=== PATIENT | female | born 1970 | race Caucasian/White ===

== ENCOUNTER 2024-03-01 19:28 | Emergency (ER) | payer MEDICAID, SELFPAY ==
[2024-03-01 20:26] VITALS: BP 174/105; PULSE 84; RESP 20; TEMP 36.8; O2SAT 97; BMI 50.1
--- NOTE | 2024-03-01 20:48 | EDNOTE_ITS ---
ED Eye Problem RME/HPI General Chief complaint: Eye Problems Stated complaint: FB IN RIGHT EYE Time Seen by Provider: 03/01/24 20:42 Source: patient Arrival date/time: 03/01/24 19:28 53-year-old female presents emergency department complaining of foreign body sensation to right eye after possible spider got into her eye. Patient denies any fever, chills, vision changes, headache, dizziness, or any other associated symptoms. Mode of arrival: ambulatory Limitations: no limitations Related Data Home Medications ?Medication ?Instructions ?Recorded ?Confirmed [id number] 50 50 mg PO PRN PRN Migraine Headache 01/22/18 05/31/19 mg-325 mg-40 mg capsule (Fiorinal) furosemide 40 mg tablet (Lasix) 40 mg PO BID 01/22/18 05/31/19 sertraline 50 mg tablet (Zoloft) 50 mg PO QDAY 01/22/18 05/31/19 tiotropium bromide 18 mcg capsule 18 mcg inhalation QDAY 01/22/18 05/31/19 with inhalation device (Spiriva with HandiHaler) aripiprazole 2 mg tablet (Abilify) 2 mg PO QDAY 12/30/18 05/31/19 oxycodone 10 mg tablet 10 mg PO QDAY 12/30/18 05/31/19 topiramate 50 mg tablet (Topamax) 50 mg PO BID 12/30/18 05/31/19 benazepril 5 mg tablet 5 mg PO QDAY 05/12/19 05/31/19 Previous Rx's ?Medication ?Instructions ?Recorded albuterol sulfate 2.5 mg/3 mL 2.5 mg (3 mL) inhalation Q4H PRN 05/12/19 (0.083 %) solution for nebulization shortness of breath or wheezing #75 mL albuterol sulfate 0.63 mg/3 mL 0.63 mg (3 mL) .Route .COMPLEX PRN 05/31/19 solution for nebulization shortness of breath or wheezing #75 mL benzonatate 100 mg capsule See Rx Instructions .Route 05/31/19 (Alfredito Brewer) .COMPLEX cough #30 caps prednisone 20 mg tablet See Rx Instructions .Route QAM #19 05/31/19 tabs acetaminophen 300 mg-codeine 15 mg 1 tab PO BID PRN pain #10 tabs 02/23/22 tablet cyclobenzaprine 5 mg tablet 5 mg PO Q8H PRN muscle spasm #14 03/20/23 tabs gabapentin 300 mg capsule 300 mg PO Q8H #30 caps 03/20/23 ofloxacin 0.3 % eye drops (Ocuflox) See Rx Instructions ophthalmic 03/01/24 (eye) .COMPLEX #5 mL Allergies Allergy/AdvReac Type Severity Reaction Status Date / Time carisoprodol Allergy Mild NAUSEA Verified 03/20/23 10:04 Review of Systems Review of Systems Systems Reviewed: All systems reviewed, normal except as documented Constitutional Constitutional: Reports system reviewed and no additional complaints, except as documented, Denies body ache(s), Denies chills and Denies fever(s) Eyes Eyes: Reports system reviewed and no additional complaints, except as documented, Denies change in vision, Reports irritation and Reports other (Foreign body sensation) ENT Ears, Nose, Mouth, and Throat: Reports system reviewed and no additional complaints, except as documented, Denies disequilibrium, Denies dizziness, Denies sore throat and Denies vertigo Cardiovascular Cardiovascular: Reports system reviewed and no additional complaints, except as documented, Denies chest pain and Denies dyspnea Respiratory Respiratory: Reports system reviewed and no additional complaints, except as documented, Denies chest congestion, Denies cough and Denies dyspnea Gastrointestinal Gastrointestinal: Reports system reviewed and no additional complaints, except as documented, Denies abdominal pain, Denies nausea and Denies vomiting Musculoskeletal Musculoskeletal: Reports system reviewed and no additional complaints, except as documented, Denies abnormal gait and Denies arthralgias Integumentary/Breasts Skin/Breast: Reports system reviewed and no additional complaints, except as documented, Denies erythema, Denies rash and Denies wounds Neurologic Neurologic: Reports system reviewed and no additional complaints, except as documented, Denies abnormal gait, Denies disequilibrium, Denies dizziness and Denies vertigo Past Medical History Past Medical History NEUROLOGIC: Positive Migraine CARDIAC: Positive Congestive Heart Failure and Hypertension; Negative Cardiac Disorders RESPIRATORY: Positive Chronic Obstructive Pulmonary Disease (COPD) and Asthma GENITOURINARY: Negative Renal Disease ENDOCRINE: Negative Diabetes Mellitus Type 1 or Diabetes Mellitus Type 2 HEMATOLOGIC: Negative Sickle Cell Disease Surgical History SURGICAL: Positive Hysterectomy, Tubal Ligation and Section Social History SMOKING STATUS: Current every day smoker ED Exam General Limitations: Present no limitations General appearance: Present alert and in no apparent distress Head Head exam: Present atraumatic Eye Eye exam: Present normal appearance, PERRL, EOMI, scleral icterus and conjunctival injection Expanded Eye Exam Eyelids: right: erythema Pupils: Bilateral: regular, round Sclera/Conjunctival: right: injection ENT ENT exam: Present normal exam, normal oropharynx and mucous membranes moist Neck Neck exam: Present normal inspection, full ROM and trachea midline Chest Chest inspection: Present normal inspection and symmetric chest wall rise Respiratory Respiratory exam: Present normal lung sounds bilaterally Cardiovascular Cardiovascular exam: Present regular rate, normal rhythm and normal heart sounds Abdominal Exam Abdominal exam: Present soft and normal bowel sounds Extremities Exam Extremities exam: Present normal inspection and full ROM Back Exam Back exam: Present normal inspection and full ROM Neurological Exam Neurological exam: Present alert, oriented X3 and CN II-XII intact Psychiatric Psychiatric exam: Present normal affect and normal mood Skin Skin exam: Present warm, dry, intact and normal color Course Quality Measures none Orders Category Date Time Status Visual Acuity X1 Care 03/01/24 20:48 Completed Charles Lamp to Bedside X1 Care 03/01/24 20:48 Completed Fluorescein Sodium [[id number]] Med 03/01/24 20:48 Discontinued 1 mg RIGHT EYE X1 ONE TETRACAINE Op Kavita 0.5% [Pontocaine Op Kavita 0.5%] Med 03/01/24 20:48 Discontinued 1 drop RIGHT EYE X1 ONE Vital Signs Vital signs: Vital Signs Temperature 98.3 F 03/01/24 20:26 Pulse Rate 84 03/01/24 20:26 Respiratory Rate 20 03/01/24 20:26 Blood Pressure 174/105 H 03/01/24 20:26 Pulse Oximetry (%) 97 03/01/24 20:26 Oxygen Delivery Method Room Air 03/01/24 20:26 Procedures -ED Charles Lamp Exam Right eye: Flourescein uptake:: Yes Charles Lamp Findings: Normal Eye MDM Narrative MDM Narrative:: 53-year-old female presents emergency department complaining of foreign body sensation to right eye after possible spider got into her eye. Patient denies any fever, chills, vision changes, headache, dizziness, or any other associated symptoms. On exam patient's right eye injected sclera and upper and lower eyelids erythema tous. Charles lamp examination with fluorescein negative for any foreign body, corneal abrasion, or corneal ulcers. Patient appears nontoxic and hemodynamically stable. Patient denies any vision changes but reports right eye does feel itchy and irritated. Patient discharged on ofloxacin eyedrops and instructed to have close follow-up with belt glass sander in 24 to 48 hours. Instructed to return to emergency department for any worsening symptoms or as needed. Patient data External records reviewed:: [facility] previous records Clinical information provided by:: patient Social determinants that could affect healthcare access:: none Patient has the following chronic illnesses:: See chart How is presenting disease/condition affected by chronic disease/condition?: uneffected by Evaluation data The following diagnostics were reviewed and interpreted by me:: other (specify) (N/A) Lab and/or radiology exams considered but not ordered:: N/A Interpretation Summary: N/A Medications / Prescriptions Medications or Prescriptions considered but not ordered:: Ordered Medication administrations:: Medication Administration History Discontinued Medications Fluorescein Sodium (Fluorescein Sod 1 Mg Strp) 1 mg RIGHT EYE X1 ONE Stop: 03/01/24 20:49 Last Admin: 03/01/24 21:10 Dose: 1 mg Documented By: SARITA Tetracaine HCl (Tetracaine Pf Op Kavita 0.5% 4 Ml Drpette) 1 drop RIGHT EYE X1 ONE Stop: 03/01/24 20:49 Last Admin: 03/01/24 21:09 Dose: 1 drop Documented By: SARITA Given Consultations Consultation(s) initiated? (list below): No Diagnosis Eye Problem Differential Diagnosis: corneal abrasion, conjunctivitis, acute iritis, periorbital cellulitis and corneal ulcer Most likely diagnosis given after review of the tests above:: Bacterial conjunctivitis Admission Indicated Admission indicated?: not indicated Admission Request Was there a request for admission?: No Disposition Plan Disposition Plan: Discharge Discharge Attestation Discharge Attestation: The patient and all family members were given an opportunity to ask questions and understood the discharge instructions. Discharge instructions specifically effects, indications for sooner follow up or return to the emergency department, and the expected course of current diagnosis. Patient condition: Stable Discharge Plan Plan Patient Disposition: HOME (Self Care) Disposition Comment: Stable Prescriptions/Referrals Prescriptions/Med Rec: New ofloxacin [Ocuflox] 0.3 % drops See Rx Instructions .ROUTE .COMPLEX Qty: 5 0RF Rx Instructions: put 1-2 drps into affected eye(s) every 2-4 h x 2 days, then 1-2 drps 4 times/day days 3-7 No Action benazepril 5 mg tablet 5 mg PO QDAY albuterol sulfate 2.5 mg /3 mL (0.083 %) solution for nebulization 2.5 mg INH Q4H PRN (Reason: shortness of breath or wheezing) Qty: 75 0RF albuterol sulfate 0.63 mg/3 mL solution for nebulization 0.63 mg .Route .COMPLEX PRN (Reason: shortness of breath or wheezing) Qty: 75 0RF Rx Instructions: 0.63 mg PRN; 1 vial via nebulizer Q4-6 hours as needed prednisone 20 mg tablet See Rx Instructions .Route QAM Qty: 19 0RF Rx Instructions: QAM; Take 60mg (3 tabs) PO QAM x 3 days, then 40mg (2 tabs) PO QAM x 3 days, then 20mg (1 tab) PO QAM x 4 days benzonatate [Tessalon Perles] 100 mg capsule See Rx Instructions .Route .COMPLEX Qty: 30 0RF Rx Instructions: 1-2 cap(s) PO Q8 hours prn cough furosemide [Lasix] 40 mg Tablet 40 mg PO BID [id number]-jvjigkq-whniiwvz [Fiorinal] 50-325-40 mg Capsule 50 mg PO PRN PRN (Reason: Migraine Headache) sertraline [Zoloft] 50 mg Tablet 50 mg PO QDAY Spiriva with HandiHaler 18 mcg Capsule, W/Inhalation Device 18 mcg INHALATION QDAY acetaminophen-codeine 300-15 mg tablet 1 tab PO BID PRN (Reason: pain) Qty: 10 0RF topiramate [Topamax] 50 mg Tablet 50 mg PO BID aripiprazole [Abilify] 2 mg Tablet 2 mg PO QDAY oxycodone 10 mg Tablet 10 mg PO QDAY gabapentin 300 mg capsule 300 mg PO Q8H Qty: 30 0RF cyclobenzaprine 5 mg tablet 5 mg PO Q8H PRN (Reason: muscle spasm) Qty: 14 0RF Referrals: Julieta Fonseca MD [Primary Care Provider] - In 1 week Problem List Clinical Impression: Bacterial conjunctivitis Patient/Caregiver Discharge Instructions Discharge Activity: activity as tolerated Education Materials: ED Conjunctivitis, Bacterial Additional Instructions: Apply medication as prescribed. Close follow-up with belt glass sander in 24 to 48 hours. Return to emergency department for any worsening symptoms or as needed. Print Language: Romansh Stand Alone Forms: Adela Award Info., Work/School Release, Patient Portal Info Letter PA/DIE CASTING SUPERVISOR Supervising Physician PA/DIE CASTING SUPERVISOR Supervising Physician: Dr. Salinas
[2024-03-01] MEDS: TETRACAINE PF OP SOL 0.5% 4 ML DRPETTE 1 DROP RIGHT EYE (21:09)
[2024-03-01] MEDS: FLUORESCEIN SOD 1 MG STRP RIGHT EYE (21:10)
== END 2024-03-01 23:03 | disposition home or self-care (01) ==
PROVIDERS: Emergency Provider Emergency Medicine; PCP Obstetrics & Gynecology
DX: H10.89 Other conjunctivitis (principal)
CPT/HCPCS: 99283

== ENCOUNTER 2024-04-16 05:27 | Emergency (ER) | payer MEDICAID, SELFPAY ==
[2024-04-16 05:27] VITALS: BMI 48.6
[2024-04-16 05:41] VITALS: BP 169/117; BP 197/128; PULSE 75; RESP 20; TEMP 36.8; O2SAT 97
--- NOTE | 2024-04-16 06:25 | PD.EDHA ---
ED Headache RME/HPI General Chief Complaint: Headache Stated Complaint: MIGRAINE Time Seen by Provider: 04/16/24 06:21 Arrival date/time: 04/16/24 05:27 RME / HPI RME / HPI Narrative: 53-year-old female patient with history of migraine headaches and high blood pressure presents to the emergency department with complaint of headaches since 12 AM. Patient has taken doses of Excedrin without relief. She states that she was unable to take her blood pressure medication as she was vomiting. Patient does endorse having this problems in the past and getting relief with migraine cocktail when she comes to the emergency department. She denies numbness and tingling to bilateral upper or lower extremity. She denies focal weakness. She rates her pain currently as an 8 out of 10. She also endorses photophobia and phonophobia. Related Data Home Medications ?Medication ?Instructions ?Recorded ?Confirmed [id number]-rlgsfqu-pzjubpqc 50 50 mg PO PRN PRN Migraine Headache 01/22/18 05/31/19 mg-325 mg-40 mg capsule (Fiorinal) furosemide 40 mg tablet (Lasix) 40 mg PO BID 01/22/18 05/31/19 sertraline 50 mg tablet (Zoloft) 50 mg PO QDAY 01/22/18 05/31/19 tiotropium bromide 18 mcg capsule 18 mcg inhalation QDAY 01/22/18 05/31/19 with inhalation device (Spiriva with HandiHaler) aripiprazole 2 mg tablet (Abilify) 2 mg PO QDAY 12/30/18 05/31/19 oxycodone 10 mg tablet 10 mg PO QDAY 12/30/18 05/31/19 topiramate 50 mg tablet (Topamax) 50 mg PO BID 12/30/18 05/31/19 benazepril 5 mg tablet 5 mg PO QDAY 05/12/19 05/31/19 Previous Rx's ?Medication ?Instructions ?Recorded albuterol sulfate 2.5 mg/3 mL 2.5 mg (3 mL) inhalation Q4H PRN 05/12/19 (0.083 %) solution for nebulization shortness of breath or wheezing #75 mL albuterol sulfate 0.63 mg/3 mL 0.63 mg (3 mL) .Route .COMPLEX PRN 05/31/19 solution for nebulization shortness of breath or wheezing #75 mL benzonatate 100 mg capsule See Rx Instructions .Route 05/31/19 (Tessalon Perles) .COMPLEX cough #30 caps prednisone 20 mg tablet See Rx Instructions .Route QAM #19 05/31/19 tabs acetaminophen 300 mg-codeine 15 mg 1 tab PO BID PRN pain #10 tabs 06/05/21 tablet cyclobenzaprine 5 mg tablet 5 mg PO Q8H PRN muscle spasm #14 03/20/23 tabs gabapentin 300 mg capsule 300 mg PO Q8H #30 caps 03/20/23 ofloxacin 0.3 % eye drops (Ocuflox) See Rx Instructions ophthalmic 03/01/24 (eye) .COMPLEX #5 mL Allergies Allergy/AdvReac Type Severity Reaction Status Date / Time carisoprodol Allergy Mild NAUSEA Verified 04/16/24 05:29 Review of Systems Review of Systems Systems Reviewed: All systems reviewed, normal except as documented Constitutional Constitutional: Reports system reviewed and no additional complaints, except as documented ENT Ears, Nose, Mouth, and Throat: Reports system reviewed and no additional complaints, except as documented Cardiovascular Cardiovascular: Reports system reviewed and no additional complaints, except as documented Respiratory Respiratory: Reports system reviewed and no additional complaints, except as documented Gastrointestinal Gastrointestinal: Reports system reviewed and no additional complaints, except as documented Musculoskeletal Musculoskeletal: Reports system reviewed and no additional complaints, except as documented Neurologic Neurologic: Reports system reviewed and no additional complaints, except as documented Psychiatric Psychiatric: Reports system reviewed and no additional complaints, except as documented ED Exam General General appearance: Present alert and in no apparent distress Head Head exam: Present atraumatic and normocephalic Eye Eye exam: Present normal appearance and PERRL ENT ENT exam: Present normal exam and normal oropharynx Respiratory Respiratory exam: Present normal lung sounds bilaterally Cardiovascular Cardiovascular exam: Present regular rate and normal rhythm Neurological Exam Neurological exam: Present alert, oriented X3, CN II-XII intact, normal gait and reflexes normal; Absent motor sensory deficit Psychiatric Psychiatric exam: Present normal affect and normal mood Course Quality Measures none Orders Category Date Time Status DiphenhydrAMINE INJ [Benadryl Inj] Med 04/16/24 06:23 Discontinued 50 mg IM X1 ONE Ketorolac Inj [Toradol Inj] Med 04/16/24 06:23 Discontinued 60 mg IM X1 ONE Promethazine Inj [Phenergan Inj] Med 04/16/24 06:23 Discontinued 50 mg IM X1 ONE cloNIDine HCL [Catapres] Med 04/16/24 06:25 Discontinued 0.2 mg PO X1 ONE Vital Signs Vital signs: Vital Signs Temperature 98.3 F 04/16/24 05:41 Pulse Rate 75 04/16/24 05:41 Respiratory Rate 20 04/16/24 05:41 Blood Pressure 197/128 H 04/16/24 05:41 Pulse Oximetry (%) 97 04/16/24 05:41 Oxygen Delivery Method Room Air 04/16/24 05:41 Headache Patient data External records reviewed:: None Clinical information provided by:: patient Social determinants that could affect healthcare access:: none Patient has the following chronic illnesses:: Hypertension, migraine How is presenting disease/condition affected by chronic disease/condition?: exacerbated by Evaluation data The following diagnostics were reviewed and interpreted by me:: other (specify) (na) Lab and/or radiology exams considered but not ordered:: na Interpretation Summary: na Medications / Prescriptions Medications or Prescriptions considered but not ordered:: meds considered and ordered Medication administrations:: Medication Administration History Discontinued Medications Clonidine (Clonidine Hcl 0.1 Mg Tablet) 0.2 mg PO X1 ONE Stop: 04/16/24 06:26 Last Admin: 04/16/24 07:51 Dose: 0.2 mg Documented By: DO Diphenhydramine HCl (Diphenhydramine Inj 50 Mg/Ml Vial) 50 mg IM X1 ONE Stop: 04/16/24 06:24 Last Admin: 04/16/24 07:53 Dose: 50 mg Documented By: DO Ketorolac Tromethamine (Ketorolac Inj 60 Mg/2 Ml Vial) 60 mg IM X1 ONE Stop: 04/16/24 06:24 Last Admin: 04/16/24 07:52 Dose: 60 mg Documented By: DO Promethazine HCl (Promethazine Inj 25 Mg/Ml Vial) 50 mg IM X1 ONE; Protocol Stop: 04/16/24 06:24 Last Admin: 04/16/24 08:29 Dose: Not Given Documented By: DO Non-Admin Reason: Other, see note per above Consultations Consultation(s) initiated? (list below): No Diagnosis Differential diagnosis headache: migraine, tension headache, subarachnoid hemorrhage and headache Most likely diagnosis given after review of the tests above:: na Admission Indicated Admission indicated?: not indicated Admission Request Was there a request for admission?: No Disposition Plan Disposition Plan: Discharge Discharge Attestation Discharge Attestation: The patient and all family members were given an opportunity to ask questions and understood the discharge instructions. Discharge instructions specifically effects, indications for sooner follow up or return to the emergency department, and the expected course of current diagnosis. Patient condition: Stable Discharge Plan Plan Patient Disposition: HOME (Self Care) Prescriptions/Referrals Prescriptions/Med Rec: No Action benazepril 5 mg tablet 5 mg PO QDAY albuterol sulfate 2.5 mg /3 mL (0.083 %) solution for nebulization 2.5 mg INH Q4H PRN (Reason: shortness of breath or wheezing) Qty: 75 0RF albuterol sulfate 0.63 mg/3 mL solution for nebulization 0.63 mg .Route .COMPLEX PRN (Reason: shortness of breath or wheezing) Qty: 75 0RF Rx Instructions: 0.63 mg PRN; 1 vial via nebulizer Q4-6 hours as needed prednisone 20 mg tablet See Rx Instructions .Route QAM Qty: 19 0RF Rx Instructions: QAM; Take 60mg (3 tabs) PO QAM x 3 days, then 40mg (2 tabs) PO QAM x 3 days, then 20mg (1 tab) PO QAM x 4 days benzonatate [Tessalon Perles] 100 mg capsule See Rx Instructions .Route .COMPLEX Qty: 30 0RF Rx Instructions: 1-2 cap(s) PO Q8 hours prn cough furosemide [Lasix] 40 mg Tablet 40 mg PO BID svfwrboawh-kdhzldk-sambrwky [Fiorinal] 50-325-40 mg Capsule 50 mg PO PRN PRN (Reason: Migraine Headache) sertraline [Zoloft] 50 mg Tablet 50 mg PO QDAY Spiriva with HandiHaler 18 mcg Capsule, W/Inhalation Device 18 mcg INHALATION QDAY acetaminophen-codeine 300-15 mg tablet 1 tab PO BID PRN (Reason: pain) Qty: 10 0RF topiramate [Topamax] 50 mg Tablet 50 mg PO BID aripiprazole [Abilify] 2 mg Tablet 2 mg PO QDAY oxycodone 10 mg Tablet 10 mg PO QDAY gabapentin 300 mg capsule 300 mg PO Q8H Qty: 30 0RF cyclobenzaprine 5 mg tablet 5 mg PO Q8H PRN (Reason: muscle spasm) Qty: 14 0RF ofloxacin [Ocuflox] 0.3 % drops See Rx Instructions .ROUTE .COMPLEX Qty: 5 0RF Rx Instructions: put 1-2 drps into affected eye(s) every 2-4 h x 2 days, then 1-2 drps 4 times/day days 3-7 Problem List Clinical Impression: Migraine Patient/Caregiver Discharge Instructions Education Materials: ED Headache, Migraine, Classic Print Language: Taiwanese Stand Alone Forms: Adela Award Info., Patient Portal Info Letter
[2024-04-16 07:51] VITALS: BP 178/125; PULSE 75
[2024-04-16] MEDS: cloNIDine HCL 0.1 MG TABLET 0.2 MG PO (07:51)
[2024-04-16] MEDS: KETOROLAC INJ 60 MG/2 ML VIAL IM (07:52)
[2024-04-16] MEDS: DiphenhydrAMINE INJ 50 MG/ML VIAL IM (07:53)
[2024-04-16 08:30] VITALS: BP 149/100; PULSE 67; RESP 18
== END 2024-04-16 08:30 | disposition home or self-care (01) ==
PROVIDERS: Emergency Provider Emergency Medicine; PCP Obstetrics & Gynecology
DX: G43.909 Migraine, unspecified, not intractable, without status migrainosus (principal)
CPT/HCPCS: 96372; 99283; J1200; J1885; A9270

== ENCOUNTER 2024-04-19 08:30 | Emergency (ER) | payer MEDICAID, SELFPAY ==
[2024-04-19 08:40] VITALS: BP 188/144; PULSE 99; RESP 20; TEMP 37; O2SAT 98; BMI 49.3
--- NOTE | 2024-04-19 08:44 | EKG_ITS ---
[facility] Test Date: 2024-04-19 Pat Name: PRANAV HIGGINS Department: Room: - Gender: Female Blood Bank Custodian: : 1970 Requested By: Earnest Ruvalcaba Order Number: [id number] Reading MD: Earnest Ruvalcaba Measurements Intervals [place] Rate: 90 P: -29 GA: 162 QRS: 74 QRSD: 85 T: 37 QT: 360 QTc: 441 Interpretive Statements SINUS RHYTHM No previous ECG available for comparison /store/S0/[id number]/[id number].pdf
--- NOTE | 2024-04-19 08:44 | XR_ITS ---
Examination: PA lateral chest 2 views TECHNIQUE: Upright PA lateral chest 2 views Exam date and time: April 19, 2024 0922 hours INDICATIONS: Chest pain numbness in the extremities today. FINDINGS: Normal heart size Lungs are clear. The osseous structures are intact IMPRESSION: No active disease
--- NOTE | 2024-04-19 08:45 | EDNOTE_ITS ---
Upper Respiratory Inf. RME/HPI General Chief Complaint: Flu Like Symptoms Stated Complaint: sob, cough, n/v/d x 4days Time Seen by Provider: 04/19/24 08:35 Source: patient Arrival date/time: 04/19/24 08:30 53-year-old female with a history of hypertension presents to the emergency room with a chief complaint of shortness of breath, cough, nausea vomiting diarrhea x 4 days. Patient states that on her way to work she also began to have a tingling sensation to the left side of her body and states she is having chest discomfort. Mode of arrival: ambulatory Limitations: no limitations Related Data Home Medications ?Medication ?Instructions ?Recorded ?Confirmed imuwsqzonz-[id number] 50 50 mg PO PRN PRN Migraine Headache 01/22/18 05/31/19 mg-325 mg-40 mg capsule (Fiorinal) furosemide 40 mg tablet (Lasix) 40 mg PO BID 01/22/18 05/31/19 sertraline 50 mg tablet (Zoloft) 50 mg PO QDAY 01/22/18 05/31/19 tiotropium bromide 18 mcg capsule 18 mcg inhalation QDAY 01/22/18 05/31/19 with inhalation device (Spiriva with HandiHaler) aripiprazole 2 mg tablet (Abilify) 2 mg PO QDAY 12/30/18 05/31/19 oxycodone 10 mg tablet 10 mg PO QDAY 12/30/18 05/31/19 topiramate 50 mg tablet (Topamax) 50 mg PO BID 12/30/18 05/31/19 benazepril 5 mg tablet 5 mg PO QDAY 05/12/19 05/31/19 Previous Rx's ?Medication ?Instructions ?Recorded albuterol sulfate 2.5 mg/3 mL 2.5 mg (3 mL) inhalation Q4H PRN 05/12/19 (0.083 %) solution for nebulization shortness of breath or wheezing #75 mL albuterol sulfate 0.63 mg/3 mL 0.63 mg (3 mL) .Route .COMPLEX PRN 05/31/19 solution for nebulization shortness of breath or wheezing #75 mL benzonatate 100 mg capsule See Rx Instructions .Route 05/31/19 (Alfredito Brewer) .COMPLEX cough #30 caps prednisone 20 mg tablet See Rx Instructions .Route QAM #19 05/31/19 tabs acetaminophen 300 mg-codeine 15 mg 1 tab PO BID PRN pain #10 tabs 06/05/21 tablet cyclobenzaprine 5 mg tablet 5 mg PO Q8H PRN muscle spasm #14 03/20/23 tabs gabapentin 300 mg capsule 300 mg PO Q8H #30 caps 03/20/23 ofloxacin 0.3 % eye drops (Ocuflox) See Rx Instructions ophthalmic 03/01/24 (eye) .COMPLEX #5 mL Allergies Allergy/AdvReac Type Severity Reaction Status Date / Time carisoprodol Allergy Mild NAUSEA Verified 04/19/24 08:32 Review of Systems Review of Systems Systems Reviewed: All systems reviewed, normal except as documented Constitutional Constitutional: Reports system reviewed and no additional complaints, except as documented, Denies fatigue, Denies fever(s), Denies headache(s) and Denies weakness Eyes Eyes: Reports system reviewed and no additional complaints, except as documented, Denies blurry vision and Denies change in vision ENT Ears, Nose, Mouth, and Throat: Reports system reviewed and no additional complaints, except as documented, Denies otalgia, Denies headache(s), Denies nasal congestion, Denies throat swelling and Denies vertigo Cardiovascular Cardiovascular: Reports system reviewed and no additional complaints, except as documented, Reports dyspnea, Denies dyspnea on exertion, Reports orthopnea, Reports radiating jaw, neck or arm pain and Reports rapid heart rate Respiratory Respiratory: Reports system reviewed and no additional complaints, except as documented, Denies chest congestion, Denies cough, Reports dyspnea, Denies dyspnea on exertion and Denies wheezing Gastrointestinal Gastrointestinal: Reports system reviewed and no additional complaints, except as documented, Denies abdominal pain, Denies cramping, Denies nausea and Denies vomiting Genitourinary Genitourinary: Reports system reviewed and no additional complaints, except as documented Musculoskeletal Musculoskeletal: Reports system reviewed and no additional complaints, except as documented and Denies back pain Integumentary/Breasts Skin/Breast: Reports system reviewed and no additional complaints, except as documented and Denies wounds Neurologic Neurologic: Reports system reviewed and no additional complaints, except as documented, Denies confusion, Denies headache(s), Denies lack of coordination, Denies vertigo and Denies weakness Psychiatric Psychiatric: Reports system reviewed and no additional complaints, except as documented, Denies anxiety, Denies confusion, Denies depression, Denies paranoia, Denies suicidal ideation and Denies tactile hallucinations Endocrine Endocrine: Reports system reviewed and no additional complaints, except as documented and Denies fatigue Hematologic/Lymphatic Hematologic/Lymphatic: Reports system reviewed and no additional complaints, except as documented and Denies lymphadenopathy Allergic/Immunologic Allergic/Immunologic: Reports system reviewed and no additional complaints, except as documented, Denies throat swelling, Denies urticaria and Denies wheezing Past Medical History Past Medical History NEUROLOGIC: Positive Migraine CARDIAC: Positive Congestive Heart Failure and Hypertension; Negative Cardiac Disorders RESPIRATORY: Positive Chronic Obstructive Pulmonary Disease (COPD) and Asthma GENITOURINARY: Negative Renal Disease ENDOCRINE: Negative Diabetes Mellitus Type 1 or Diabetes Mellitus Type 2 HEMATOLOGIC: Negative Sickle Cell Disease Surgical History SURGICAL: Positive Hysterectomy, Tubal Ligation and Section Social History SMOKING STATUS: Current every day smoker ED Exam General Limitations: Present no limitations General appearance: Present alert and in no apparent distress Head Head exam: Present atraumatic Eye Eye exam: Present normal appearance, PERRL and EOMI ENT ENT exam: Present normal exam, normal oropharynx and mucous membranes moist Neck Neck exam: Present normal inspection, full ROM and trachea midline Chest Chest inspection: Present normal inspection and symmetric chest wall rise Respiratory Respiratory exam: Present normal lung sounds bilaterally and wheezes; Absent stridor, accessory muscle use or prolonged expiratory phase Expanded Respiratory Exam Location: Left: wheezes, Right: wheezes and Lower: wheezes Cardiovascular Cardiovascular exam: Present regular rate, normal rhythm and normal heart sounds; Absent bradycardia, tachycardia, irregular rhythm or systolic murmur Abdominal Exam Abdominal exam: Present soft and normal bowel sounds; Absent distention, tenderness, guarding, rebound or rigidity Extremities Exam Extremities exam: Present normal inspection and full ROM Back Exam Back exam: Present normal inspection and full ROM Neurological Exam Neurological exam: Present alert, oriented X3 and CN II-XII intact Psychiatric Psychiatric exam: Present normal affect and normal mood Skin Skin exam: Present warm, dry, intact and normal color Course Quality Measures none Orders Category Date Time Status Bedside COVID-19 Antigen Test NOW Care 04/19/24 08:45 Completed Bedside Influenza A&B Antigen Test NOW Care 04/19/24 08:45 Completed EKG (ED ONLY) *Do not use* NOW Care 04/19/24 08:44 Completed EKG (ED Only) Stat Exams 04/19/24 08:44 Draft XR chest 2V Stat Exams 04/19/24 08:44 Completed B-Type Natriuretic Peptide Stat Lab 04/19/24 09:47 Completed CBC Stat Lab 04/19/24 09:47 Completed Comprehensive Metabolic Panel Stat Lab 04/19/24 09:47 Completed Magnesium Stat Lab 04/19/24 09:47 Completed Troponin I Stat Lab 04/19/24 09:47 Completed ACETAMINOPHEN w/COD 300-30 [Tylenol w/Cod #3] Med 04/19/24 08:44 Discontinued 1 tab PO X1 ONE Albuterol/Ipratr Rt Kavita [Duoneb Rt Kavita] Med 04/19/24 08:44 Discontinued 3 ml INH X1 ONE Dexamethasone Inj [Decadron Inj] Med 04/19/24 08:44 Discontinued 10 mg PO X1 ONE Vital Signs Vital signs: Vital Signs Temperature 98.6 F 04/19/24 08:40 Pulse Rate 99 04/19/24 08:40 Respiratory Rate 20 04/19/24 08:40 Blood Pressure 188/144 H 04/19/24 08:40 Pulse Oximetry (%) 98 04/19/24 08:40 Oxygen Delivery Method Room Air 04/19/24 08:40 O2 saturation 98% within normal limits Procedures -ED Smoking Cessation Time Spent Discussing Smoking Cessation w/Patient (min): 2 Patient Acknowledges Need for Cessation: Yes Upper Respiratory Infection MDM Narrative MDM Narrative:: 53-year-old female with a history of hypertension presents to the emergency room with a chief complaint of shortness of breath, cough, nausea vomiting diarrhea x 4 days. Patient states that on her way to work she also began to have a tingling sensation to the left side of her body and states she is having chest discomfort. Clinically the patient appears nontoxic and in no apparent distress. Physical examination shows clear bilateral lung sounds with no evidence of wheezing stridor or respiratory distress. EKG was completed and shows normal sinus rhythm 93 bpm. Troponin was negative for cardiac exam was within normal limits. X-ray was completed and was negative for any pneumonic infiltrates. Patient was discharged and educated to follow-up with primary care provider and return to the emergency room for any evidence of worsening signs or symptoms Patient data External records reviewed:: [facility] previous records Clinical information provided by:: patient Social determinants that could affect healthcare access:: none Patient has the following chronic illnesses:: No chronic illness How is presenting disease/condition affected by chronic disease/condition?: no chronic disease Evaluation data The following diagnostics were reviewed and interpreted by me:: lab results and radiology exam(s) Lab and/or radiology exams considered but not ordered:: Labs and radiology exams considered and ordered Interpretation Summary: Chest x-ray-no pneumonic infiltrate Medications / Prescriptions Medications or Prescriptions considered but not ordered:: Medication given Medication administrations:: Medication Administration History Discontinued Medications Acetaminophen/Codeine Phosphate (Acetaminophen W/Cod 300-30 Tablet) 1 tab PO X1 ONE Stop: 04/19/24 08:45 Last Admin: 04/19/24 09:01 Dose: 1 tab Documented By: NUSRAT Albuterol/Ipratropium (Albuterol/Ipratropium (Duoneb) Rt Kavita 3 Ml Nebu) 3 ml INH X1 ONE Stop: 04/19/24 08:45 Last Admin: 04/19/24 09:00 Dose: 3 ml Documented By: PADMINI Dexamethasone Sodium Phosphate (Dexamethasone Sod Phos Inj 10 Mg/Ml Vial) 10 mg PO X1 ONE Stop: 04/19/24 08:45 Last Admin: 04/19/24 09:02 Dose: 10 mg Documented By: NUSRAT Comments: Per provider, ok to give PO. Medication given Consultations Consultation(s) initiated? (list below): No Diagnosis Upper Respiratory Differential Diagnosis: upper respiratory infection, sinusitis, viral infection, influenza, pharyngitis and other (Community-acquired pneumonia/chest pain/RI) Most likely diagnosis given after review of the tests above:: Upper respiratory infection Admission Indicated Admission indicated?: not indicated Admission Request Was there a request for admission?: No Disposition Plan Disposition Plan: Discharge Discharge Attestation Discharge Attestation: The patient and all family members were given an opportunity to ask questions and understood the discharge instructions. Discharge instructions specifically effects, indications for sooner follow up or return to the emergency department, and the expected course of current diagnosis. Patient condition: Stable Discharge Plan Plan Patient Disposition: HOME (Self Care) Disposition Comment: Stable Prescriptions/Referrals Prescriptions/Med Rec: No Action benazepril 5 mg tablet 5 mg PO QDAY albuterol sulfate 2.5 mg /3 mL (0.083 %) solution for nebulization 2.5 mg INH Q4H PRN (Reason: shortness of breath or wheezing) Qty: 75 0RF albuterol sulfate 0.63 mg/3 mL solution for nebulization 0.63 mg .Route .COMPLEX PRN (Reason: shortness of breath or wheezing) Qty: 75 0RF Rx Instructions: 0.63 mg PRN; 1 vial via nebulizer Q4-6 hours as needed prednisone 20 mg tablet See Rx Instructions .Route QAM Qty: 19 0RF Rx Instructions: QAM; Take 60mg (3 tabs) PO QAM x 3 days, then 40mg (2 tabs) PO QAM x 3 days, then 20mg (1 tab) PO QAM x 4 days benzonatate [Tessalon Perles] 100 mg capsule See Rx Instructions .Route .COMPLEX Qty: 30 0RF Rx Instructions: 1-2 cap(s) PO Q8 hours prn cough furosemide [Lasix] 40 mg Tablet 40 mg PO BID [id number] [Fiorinal] 50-325-40 mg Capsule 50 mg PO PRN PRN (Reason: Migraine Headache) sertraline [Zoloft] 50 mg Tablet 50 mg PO QDAY Spiriva with HandiHaler 18 mcg Capsule, W/Inhalation Device 18 mcg INHALATION QDAY acetaminophen-codeine 300-15 mg tablet 1 tab PO BID PRN (Reason: pain) Qty: 10 0RF topiramate [Topamax] 50 mg Tablet 50 mg PO BID aripiprazole [Abilify] 2 mg Tablet 2 mg PO QDAY oxycodone 10 mg Tablet 10 mg PO QDAY gabapentin 300 mg capsule 300 mg PO Q8H Qty: 30 0RF cyclobenzaprine 5 mg tablet 5 mg PO Q8H PRN (Reason: muscle spasm) Qty: 14 0RF ofloxacin [Ocuflox] 0.3 % drops See Rx Instructions .ROUTE .COMPLEX Qty: 5 0RF Rx Instructions: put 1-2 drps into affected eye(s) every 2-4 h x 2 days, then 1-2 drps 4 time s/day days 3-7 Referrals: Julieta Fonseca MD [Primary Care Provider] - In 1 week Problem List Clinical Impression: Upper respiratory infection, viral, Chest pain Patient/Caregiver Discharge Instructions Education Materials: ED Chest Pain, Uncertain Cause, ED URI, Viral, No Abx (Adult) Additional Instructions: Please follow-up with your primary care provider in the next 24 to 48 hours. Your cardiac workup here was completed and was negative for any acute findings. Please follow-up with your primary care provider and return to the emergency room for any evidence of worsening signs or symptoms Print Language: Upper Sorbian Stand Alone Forms: Adela Award Info., Work/School Release, Patient Portal Info Letter PA/SENIOR INFORMATION SECURITY ENGINEER Supervising Physician PA/SENIOR INFORMATION SECURITY ENGINEER Supervising Physician: Dr. Reyez
[2024-04-19] MEDS: ALBUTEROL/IPRATROPIUM (Duoneb) RT SOL 3 ML NEBU INH (09:00)
[2024-04-19] MEDS: ACETAMINOPHEN w/COD 300-30 TABLET 1 TAB PO (09:01)
[2024-04-19] MEDS: DEXAMETHASONE SOD PHOS INJ 10 MG/ML VIAL PO (09:02)
[2024-04-19 09:07] VITALS: PULSE 93; RESP 24; O2SAT 99
[2024-04-19 10:04] LABS: Basophils % (Auto) 0 % (0-2.5); Eosinophils # (Auto) 0.1 Thou/mm3 (0.0-0.5); Eosinophils % (Auto) 1 % (0-10); Hematocrit 42.1 % (36.0-46.0); Immature Granulocytes % (Auto) 0 % (0-0); Immature Granulocytes Auto 0.01 Thou/mm3 (0.00-0.00); Lymphocytes # (Auto) 1.8 Thou/mm3 (1.0-4.8); Lymphocytes % (Auto) 30 % (10-50); Mean Corpuscular HGB Conc 33.3 g/dl (31.0-37.0); Mean Corpuscular Hemoglobin 28.6 pg (25.0-35.0); Mean Corpuscular Volume 86 fL (80-100); Monocytes # (Auto) 0.4 Thou/mm3 (0.0-0.8); Monocytes % (Auto) 6 % (0-12); Neutrophils # (Auto) 3.9 Thou/mm3 (1.8-7.7); Neutrophils % (Auto) 63 % (37-80); Nucleated Red Blood Cell % 0 /100 WBC (0); Platelet Count 233 Thou/mm3 (140-440); RDW Standard Deviation 41.1 fL (36.4-46.3); Red Blood Count 4.89 Miln/mm3 (4.00-5.20); White Blood Count 6.2 Thou/mm3 (3.6-11.0)
[2024-04-19 10:17] LABS: B-Type Natriuretic Peptide 31 pg/mL (0-100)
[2024-04-19 10:20] LABS: Alanine Aminotransferase 20 U/L (10-49); Albumin, Serum 4.5 gm/dL (3.5-5.0); Albumin/Globulin Ratio 1.5 (1.2-2.2); Alkaline Phosphatase 80 U/L (46-116); Anion Gap 9 (7-16); Aspartate Amino Transferase 24 U/L (0-34); BUN/Creatinine Ratio 13 Ratio (12-20); Bilirubin,Total 0.8 mg/dL (0.3-1.2); Blood Urea Nitrogen 12 mg/dL (9-23); Calcium 9.9 mg/dL (8.3-10.6); Calcium (Corrected) 9.9 mg/dL (8.5-10.1); Carbon Dioxide 25.4 mMol/L (20.0-31.0); Chloride 106 mMol/L (98-107); Creatinine (Component) 0.9 mg/dL (0.6-1.3); Estimated Creatinine Clearance 109.9 mL/min (>60); Glucose 90 mg/dL (74-106); Magnesium 1.8 mg/dL (1.6-2.6); Osmolality,Calculated 279 (275-295); Potassium 3.8 mMol/L (3.4-5.1); Sodium 140 mMol/L (136-145); Total Protein 7.5 gm/dL (5.7-8.2); Troponin I < 0.020 ng/mL (0.0-0.045); eGFR > 60 See Note
== END 2024-04-19 12:04 | disposition home or self-care (01) ==
PROVIDERS: Nurse Practitioner Family; Emergency Provider Emergency Medicine; PCP Obstetrics & Gynecology
DX: J06.9 Acute upper respiratory infection, unspecified (principal); R07.9 Chest pain, unspecified
CPT/HCPCS: 36415; 71046; 80053; 80307; 81001; 83735; 83880; 84484; 85025; 87400; 87811; 93005; 94640; 99283; A9270; J1100

== ENCOUNTER 2024-05-29 19:04 | Emergency (ER) | payer OTHER, SELFPAY ==
[2024-05-29 19:06] VITALS: BMI 51.7
--- NOTE | 2024-05-29 19:19 | PC.NURSE ---
[facility] CONTACTED AND WILL SEND OFFICER WHEN AVAILABLE.
[2024-05-29 19:36] VITALS: BP 170/120; BP 176/130; PULSE 64; RESP 20; TEMP 37; O2SAT 97
--- NOTE | 2024-05-29 19:44 | XR_ITS ---
Examination: Knee, 4 views Technique: Knee AP, lateral, oblique axial 4 views Date and time of exam: Aug 15 2154 hrs. Indications: Injury to the knee today, knee pain. 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
--- NOTE | 2024-05-29 19:44 | XR_ITS ---
Examination:Examination: Left hip AP lateral AP pelvis 3 views Technique: Left hip AP lateral AP pelvis 3 views Exam date and time: May 29, 20247 hrs. Indications: Patient fell today with into the origin today Findings: No acute left hip fracture Right hip bones of the pelvis intact Impression: No acute hip or pelvic fracture Recommend 1 day follow-up AP pelvis as clinically warranted
--- NOTE | 2024-05-29 19:45 | EDRME_ITS ---
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 Patient reports went back to work but then started feeling pain and soreness several minutes later. Chief Complaint: Extremity Injury, Lower Time Seen by Provider: 05/29/24 19:17 Vital signs: Vital Signs Temperature 98.6 F 05/29/24 19:36 Pulse Rate 64 05/29/24 19:36 Respiratory Rate 20 05/29/24 19:36 Blood Pressure 176/130 H 05/29/24 19:36 Pulse Oximetry (%) 97 05/29/24 19:36 Oxygen Delivery Method Room Air 05/29/24 19:36 Vital signs reviewed by provider: Yes
[2024-05-29 20:13] VITALS: BP 176/130; PULSE 64
[2024-05-29] MEDS: hydrALAZINE HCL 25 MG TABLET PO (20:13)
[2024-05-29] MEDS: KETOROLAC INJ 60 MG/2 ML VIAL 30 MG IM (20:14)
[2024-05-29 22:37] VITALS: BP 183/113; PULSE 91; RESP 18; TEMP 36.9; O2SAT 97
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
[2024-05-29 23:31] VITALS: BP 183/113; PULSE 91
[2024-05-29] MEDS: cloNIDine HCL 0.1 MG TABLET 0.2 MG PO (23:31)
== END 2024-05-29 23:38 | disposition home or self-care (01) ==
LOC: SERX 23:31
PROVIDERS: Emergency Provider Emergency Medicine; PCP Obstetrics & Gynecology
DX: S70.02XA Contusion of left hip, initial encounter (principal); V09.20XA Pedestrian injured in traffic accident involving unspecified motor vehicles, initial encounter; M25.562 Pain in left knee
CPT/HCPCS: 73502; 73564; 96372; 99283; J1885; A9270

== ENCOUNTER 2024-09-16 07:02 | Emergency (ER) | payer MEDICAID, SELFPAY ==
[2024-09-16 07:03] VITALS: BMI 50.4
[2024-09-16 07:23] VITALS: BP 168/112; PULSE 66; RESP 20; TEMP 36.8; O2SAT 97; BMI 50.5
--- NOTE | 2024-09-16 07:37 | XR_ITS ---
Examination: Lumbar spine 3 views Technique one AP lateral coned lateral lower lumbar spine 3 views Date and time: September 16, 2024 0756 hours INDICATIONS: Patient fell off a ladder 2 days ago with injury of the lower back, lower back pain. FINDINGS: Adequate alignment lumbar vertebral bodies on the lateral view No acute lumbar fracture Mild to moderate lumbar disc narrowing most prominent L4-L5, L5-S1 IMPRESSION: No acute lumbar fracture
--- NOTE | 2024-09-16 07:38 | PD.EDBACK ---
ED Back Injury Pain RME/HPI General Chief Complaint: Back Pain/Injury Stated Complaint: BACK PAIN Time Seen by Provider: 09/16/24 07:29 Source: patient Arrival date/time: 09/16/24 07:02 53-year-old female with no known medical history presents to the emergency room with a chief complaint of tenderness to her lumbar spine after fall that occurred yesterday afternoon. Patient states her pain shoots down her left leg. Mode of arrival: ambulatory Limitations: no limitations Related Data Home Medications ?Medication ?Instructions ?Recorded ?Confirmed ztskyanceg-zpsitnf-ttwtzlzx 50 50 mg PO PRN PRN Migraine Headache 01/22/18 05/31/19 mg-325 mg-40 mg capsule (Fiorinal) furosemide 40 mg tablet (Lasix) 40 mg PO BID 01/22/18 05/31/19 sertraline 50 mg tablet (Zoloft) 50 mg PO QDAY 01/22/18 05/31/19 tiotropium bromide 18 mcg capsule 18 mcg inhalation QDAY 01/22/18 05/31/19 with inhalation device (Spiriva with HandiHaler) aripiprazole 2 mg tablet (Abilify) 2 mg PO QDAY 12/30/18 05/31/19 oxycodone 10 mg tablet 10 mg PO QDAY 12/30/18 05/31/19 topiramate 50 mg tablet (Topamax) 50 mg PO BID 12/30/18 05/31/19 benazepril 5 mg tablet 5 mg PO QDAY 05/12/19 05/31/19 Previous Rx's ?Medication ?Instructions ?Recorded albuterol sulfate 2.5 mg/3 mL 2.5 mg (3 mL) inhalation Q4H PRN 05/12/19 (0.083 %) solution for nebulization shortness of breath or wheezing #75 mL albuterol sulfate 0.63 mg/3 mL 0.63 mg (3 mL) .Route .COMPLEX PRN 05/31/19 solution for nebulization shortness of breath or wheezing #75 mL benzonatate 100 mg capsule See Rx Instructions .Route 05/31/19 (Alfredito Brewer) .COMPLEX cough #30 caps prednisone 20 mg tablet See Rx Instructions .Route QAM #19 05/31/19 tabs acetaminophen 300 mg-codeine 15 mg 1 tab PO BID PRN pain #10 tabs 06/05/21 tablet cyclobenzaprine 5 mg tablet 5 mg PO Q8H PRN muscle spasm #14 03/20/23 tabs gabapentin 300 mg capsule 300 mg PO Q8H #30 caps 03/20/23 ofloxacin 0.3 % eye drops (Ocuflox) See Rx Instructions ophthalmic 03/01/24 (eye) .COMPLEX #5 mL acetaminophen 500 mg capsule 500 mg PO Q6H PRN pain #30 caps 05/29/24 Allergies Allergy/AdvReac Type Severity Reaction Status Date / Time carisoprodol Allergy Mild Migraine Verified 09/16/24 07:07 Review of Systems Review of Systems Systems Reviewed: All systems reviewed, normal except as documented Constitutional Constitutional: Reports system reviewed and no additional complaints, except as documented, Denies fatigue, Denies fever(s), Denies headache(s) and Denies weakness Eyes Eyes: Reports system reviewed and no additional complaints, except as documented, Denies blurry vision and Denies change in vision ENT Ears, Nose, Mouth, and Throat: Reports system reviewed and no additional complaints, except as documented, Denies otalgia, Denies headache(s), Denies nasal congestion, Denies throat swelling and Denies vertigo Cardiovascular Cardiovascular: Reports system reviewed and no additional complaints, except as documented, Denies chest pain, Denies dyspnea and Denies dyspnea on exertion Respiratory Respiratory: Reports system reviewed and no additional complaints, except as documented, Denies chest congestion, Denies cough, Denies dyspnea, Denies dyspnea on exertion and Denies wheezing Gastrointestinal Gastrointestinal: Reports system reviewed and no additional complaints, except as documented, Denies abdominal pain, Denies cramping, Denies nausea and Denies vomiting Genitourinary Genitourinary: Reports system reviewed and no additional complaints, except as documented Musculoskeletal Musculoskeletal: Reports system reviewed and no additional complaints, except as documented and Reports back pain Integumentary/Breasts Skin/Breast: Reports system reviewed and no additional complaints, except as documented and Denies wounds Neurologic Neurologic: Reports system reviewed and no additional complaints, except as documented, Denies confusion, Denies headache(s), Denies lack of coordination, Denies vertigo and Denies weakness Psychiatric Psychiatric: Reports system reviewed and no additional complaints, except as documented, Denies anxiety, Denies confusion, Denies depression, Denies paranoia, Denies suicidal ideation and Denies tactile hallucinations Endocrine Endocrine: Reports system reviewed and no additional complaints, except as documented and Denies fatigue Hematologic/Lymphatic Hematologic/Lymphatic: Reports system reviewed and no additional complaints, except as documented and Denies lymphadenopathy Allergic/Immunologic Allergic/Immunologic: Reports system reviewed and no additional complaints, except as documented, Denies throat swelling, Denies urticaria and Denies wheezing ED Exam General Limitations: Present no limitations General appearance: Present alert and in no apparent distress Head Head exam: Present atraumatic Eye Eye exam: Present normal appearance, PERRL and EOMI ENT ENT exam: Present normal exam, normal oropharynx and mucous membranes moist Neck Neck exam: Present normal inspection, full ROM and trachea midline Chest Chest inspection: Present normal inspection and symmetric chest wall rise Respiratory Respiratory exam: Present normal lung sounds bilaterally Cardiovascular Cardiovascular exam: Present regular rate, normal rhythm and normal heart sounds Abdominal Exam Abdominal exam: Present soft and normal bowel sounds Extremities Exam Extremities exam: Present normal inspection and full ROM Back Exam Back exam: Present normal inspection, full ROM, vertebral tenderness and sciatic notch tenderness (L) Back 1 view image:  1. Neurological Exam Neurological exam: Present alert, oriented X3 and CN II-XII intact Psychiatric Psychiatric exam: Present normal affect and normal mood Skin Skin exam: Present warm, dry, intact and normal color Course Quality Measures none Orders Category Date Time Status XR lumbar spine 2-3V Stat Exams 09/16/24 07:37 Completed Ketorolac Inj [Toradol Inj] Med 09/16/24 07:37 Discontinued 30 mg IM X1 ONE Vital Signs Vital signs: Vital Signs Temperature 98.2 F 09/16/24 07:23 Pulse Rate 66 09/16/24 07:23 Respiratory Rate 20 09/16/24 07:23 Blood Pressure 168/112 H 09/16/24 07:23 Pulse Oximetry (%) 97 09/16/24 07:23 Oxygen Delivery Method Room Air 09/16/24 07:23 O2 saturation 97% within normal limits Back Pain / Injury MDM Narrative MDM Narrative:: 53-year-old female with no known medical history presents to the emergency room with a chief complaint of tenderness to her lumbar spine after fall that occurred yesterday afternoon. Patient states her pain shoots down her left leg. Patient is hemodynamically stable and in no apparent distress Physical examination shows tenderness and pain to the patient's lumbar area of her spine with palpation, there is also pain to the left sciatic notch. Patient states her pain will shoot down her left leg. Patient denies any saddle anesthesia, loss of bowel or bladder function, numbness to the lower extremities Patient was discharged and educated to follow-up with primary care provider in the next 24 to 48 hours and return to the emergency room for any evidence of worsening signs or symptoms Patient data External records reviewed:: [facility] previous records Clinical information provided by:: patient Social determinants that could affect healthcare access:: none Patient has the following chronic illnesses:: Hypertension How is presenting disease/condition affected by chronic disease/condition?: uneffected by Evaluation data The following diagnostics were reviewed and interpreted by me:: lab results and radiology exam(s) Lab and/or radiology exams considered but not ordered:: Labs and radiology exams considered in order Interpretation Summary: X-ray of the lumbar spine-no acute fracture Medications / Prescriptions Medications or Prescriptions considered but not ordered:: Medication given Medication administrations:: Medication Administration History Discontinued Medications Ketorolac Tromethamine (Ketorolac Inj 60 Mg/2 Ml Vial) 30 mg IM X1 ONE Stop: 09/16/24 07:38 Last Admin: 09/16/24 08:10 Dose: 30 mg Documented By: Medication given Consultations Consultation(s) initiated? (list below): No Diagnosis Differential diagnosis back pain/injury: lumbar radiculopathy, sciatica, strain of lumbar region and thoracic back pain Most likely diagnosis given after review of the tests above:: Sciatica Admission Indicated Admission indicated?: not indicated Admission Request Was there a request for admission?: No Disposition Plan Disposition Plan: Discharge Discharge Attestation Discharge Attestation: The patient and all family members were given an opportunity to ask questions and understood the discharge instructions. Discharge instructions specifically effects, indications for sooner follow up or return to the emergency department, and the expected course of current diagnosis. Patient condition: Stable Discharge Plan Plan Patient Disposition: HOME (Self Care) Discharge Disposition comment: Stable Prescriptions/Referrals Prescriptions/Med Rec: No Action benazepril 5 mg tablet 5 mg PO QDAY albuterol sulfate 2.5 mg /3 mL (0.083 %) solution for nebulization 2.5 mg INH Q4H PRN (Reason: shortness of breath or wheezing) Qty: 75 0RF albuterol sulfate 0.63 mg/3 mL solution for nebulization 0.63 mg .Route .COMPLEX PRN (Reason: shortness of breath or wheezing) Qty: 75 0RF Rx Instructions: 0.63 mg PRN; 1 vial via nebulizer Q4-6 hours as needed prednisone 20 mg tablet See Rx Instructions .Route QAM Qty: 19 0RF Rx Instructions: QAM; Take 60mg (3 tabs) PO QAM x 3 days, then 40mg (2 tabs) PO QAM x 3 days, then 20mg (1 tab) PO QAM x 4 days benzonatate [Tessalon Perles] 100 mg capsule See Rx Instructions .Route .COMPLEX Qty: 30 0RF Rx Instructions: 1-2 cap(s) PO Q8 hours prn cough furosemide [Lasix] 40 mg Tablet 40 mg PO BID [id number]-[id number] [Fiorinal] 50-325-40 mg Capsule 50 mg PO PRN PRN (Reason: Migraine Headache) sertraline [Zoloft] 50 mg Tablet 50 mg PO QDAY Spiriva with HandiHaler 18 mcg Capsule, W/Inhalation Device 18 mcg INHALATION QDAY acetaminophen-codeine 300-15 mg tablet 1 tab PO BID PRN (Reason: pain) Qty: 10 0RF topiramate [Topamax] 50 mg Tablet 50 mg PO BID aripiprazole [Abilify] 2 mg Tablet 2 mg PO QDAY oxycodone 10 mg Tablet 10 mg PO QDAY gabapentin 300 mg capsule 300 mg PO Q8H Qty: 30 0RF cyclobenzaprine 5 mg tablet 5 mg PO Q8H PRN (Reason: muscle spasm) Qty: 14 0RF ofloxacin [Ocuflox] 0.3 % drops See Rx Instructions .ROUTE .COMPLEX Qty: 5 0RF Rx Instructions: put 1-2 drps into affected eye(s) every 2-4 h x 2 days, then 1-2 drps 4 times/day days 3-7 acetaminophen 500 mg capsule 500 mg PO Q6H PRN (Reason: pain) Qty: 30 0RF Referrals: Julieta Fonseca FNP-C [Primary Care Provider] - In 1 week Problem List Clinical Impression: Sciatica Patient/Caregiver Discharge Instructions Education Materials: ED Sciatica Additional Instructions: Please follow-up with your primary care provider in the next 24 to 48 hours Your x-rays were negative for any acute fracture or dislocation If this pain continues he will need a referral for further management of your sciatica. PT/chiropractor/human resources services specialist. For any evidence of worsening signs or symptoms return to the emergency room immediately Print Language: German Stand Alone Forms: Adela Award Info., Work/School Release, Patient Portal Info Letter PA/RESEARCH SCHOLAR Supervising Physician PA/MELISSA Supervising Physician: Dr. Carr
[2024-09-16] MEDS: KETOROLAC INJ 60 MG/2 ML VIAL 30 MG IM (08:10)
== END 2024-09-16 10:43 | disposition home or self-care (01) ==
PROVIDERS: Emergency Provider Emergency Medicine; PCP Nurse Practitioner Family
DX: M54.42 Lumbago with sciatica, left side (principal)
CPT/HCPCS: 72100; 96372; 99283; J1885

== ENCOUNTER 2024-11-07 11:40 | Day surgery (SDC) | payer MEDICAID, SELFPAY ==
--- NOTE | 2024-11-04 08:25 | EKG_ITS ---
[facility] Test Date: 2024-11-04 Pat Name: PRANAV HIGGINS Department: Room: - Gender: Female Sink Maker: KATIE : 1970 Requested By: Daniel Morse Order Number: [id number] Reading MD: Daniel Morse Measurements Intervals [place] Rate: 74 P: 28 MS: 179 QRS: 72 QRSD: 94 T: 60 QT: 395 QTc: 441 Interpretive Statements SINUS RHYTHM Compared to ECG 04/19/2024 08:48:58 No significant changes /store/S0/[id number]/ecg/[id number].pdf
[2024-11-04 16:31] LABS: HCG Qualitative,Urine Negative
[2024-11-04 16:45] LABS: Alanine Aminotransferase 19 U/L (10-49); Albumin, Serum 4.1 gm/dL (3.5-5.0); Albumin/Globulin Ratio 1.8 (1.2-2.2); Alkaline Phosphatase 79 U/L (46-116); Anion Gap 8 (7-16); Aspartate Amino Transferase 20 U/L (0-34); BUN/Creatinine Ratio 17 Ratio (12-20); Bilirubin,Total 0.4 mg/dL (0.3-1.2); Blood Urea Nitrogen 15 mg/dL (9-23); Calcium 9.3 mg/dL (8.3-10.6); Calcium (Corrected) 9.3 mg/dL (8.5-10.1); Carbon Dioxide 26.2 mMol/L (20.0-31.0); Chloride 108 mMol/L (98-107); Creatinine (Component) 0.9 mg/dL (0.6-1.3); Globulin 2.3 gm/dL (2.3-3.5); Glucose 87 mg/dL (74-106); Osmolality,Calculated 282 (275-295); Potassium 4.0 mMol/L (3.4-5.1); Sodium 142 mMol/L (136-145); Total Protein 6.4 gm/dL (5.7-8.2); eGFR > 60 See Note
[2024-11-07] VITALS (9 sets, daily range): BP systolic 131–175; BP diastolic 91–117; PULSE 62–72; RESP 14–20; TEMP 36.6–37.1; O2SAT 96–100; BMI 49.4
--- NOTE | 2024-11-07 09:08 | ESHP_ITS ---
RE: PRANAV HIGGINS : 1970 DATE OF ADMISSION: 11/07/2024 This patient was seen by me at [facility] upon referral from Dr. Julieta Fonseca. This is a 53-year-old white female who was seen for colonoscopy. The patient has had some rectal bleeding because of the hemorrhoids which she has had for many years. The patient describes that she could feel the hemorrhoids sometimes in the rectal area during the bowel function. The patient has never had a colonoscopy before. She denies any history of colon cancer in the family. The patient's past history consisted of morbid obesity, congestive heart failure, COPD. Past surgeries consisted of 4 sections and hysterectomy. He also has chronic back pain and depression. PHYSICAL EXAMINATION: GENERAL: A morbidly obese white female who is about 5 feet 7 inches tall, weighing 322 pounds, BMI of 49.5. HEENT: Exam of the head normal. Eyes, ears, throat normal. NECK: Normal. LUNGS: No wheezing. HEART: Sinus rhythm. No murmurs. ABDOMEN: Protuberant with scars due to section. IMPRESSION: 1. Rectal bleeding. 2. Essential hypertension. 3. Morbid obesity. 4. Chronic obstructive pulmonary disease. 5. History of congestive heart failure. COURSE OF ACTION: I advised the patient to undergo colonoscopy in the hospital under MAC. Because of her weight, she is probably best done in the hospital with anesthesiologist standby. I have explained to her the procedure including potential complications like bleeding and perforation and she is agreeable. Procedure is planned on 11/07/2024. DT: 08::31 TT: 09:07:00 Ref: [id number] - TID: [id number]
[2024-11-07] MEDS: RINGERS LACTATED 1000 ML 1,000 ML 20 ML IV (13:03)
--- NOTE | 2024-11-07 13:35 | SUR.PHASEII ---
1335: Pt. AAOx4, vitals stable, breathing unlabored, no complaint of pain or nausea, no dressing in place, no active bleed noted, report received from MD Morse and Lindsey BACA.
--- NOTE | 2024-11-07 14:15 | SUR.PHASEII ---
1415: Pt. AAOx4, vitals stable, breathing unlabored, no complaint of pain or nausea, no dressing in place, no active bleed noted, pt. tolerated sips of water well, pt. ambulated to wheelchair with steady gait and no assist, no complications. Gave discharge instructions to the pt. and her ride, both verbalized understanding and had no further questions. Pt. left with all personal belongings.
== END 2024-11-07 14:15 | disposition home or self-care (01) ==
PROVIDERS: Anesthesiology; PCP Nurse Practitioner Family; Referring Provider Surgery; Visit Provider Surgery
PROC: 0DJD8ZZ Inspection of Lower Intestinal Tract, Via Natural or Artificial Opening Endoscopic (ICD-10-PCS; CPT 45378; principal; 2024-11-07 13:00)
DX: K57.31 Diverticulosis of large intestine without perforation or abscess with bleeding (principal); K64.4 Residual hemorrhoidal skin tags; E66.01 Morbid (severe) obesity due to excess calories; I11.0 Hypertensive heart disease with heart failure; I50.9 Heart failure, unspecified; J44.9 Chronic obstructive pulmonary disease, unspecified; Z68.42 Body mass index [BMI] 45.0-49.9, adult; Z01.810 Encounter for preprocedural cardiovascular examination
CPT/HCPCS: 45378; 36415; 80053; 81025; 93005; J7120

== ENCOUNTER 2024-12-10 06:39 | Emergency (ER) | payer MEDICAID, SELFPAY ==
[2024-12-10 06:39] VITALS: BMI 48.5
[2024-12-10 06:54] VITALS: BP 145/87; PULSE 81; RESP 18; TEMP 36.8; O2SAT 98
--- NOTE | 2024-12-10 07:05 | PD.EDADULT ---
ED General RME/HPI General Chief complaint: General Adult/Misc Complain Stated complaint: Sciatica Pain Time Seen by Provider: 12/10/24 06:46 Arrival date/time: 12/10/24 06:39 Limitations: no limitations RME / HPI RME / HPI narrative: 53yo female with acute back injury x yesterday. Not a work comp injury but was at the bathroom at [employer] when to reach for her vape that fell and when she leaned forward heard a pop. Since then has been having low back pain, with right sided tingling of right leg. States she has some urinary incontinence when she coughs from smoking but no new changes. No loss of bowel or bladder control after injury. no hx of ivdu. took ibu and tylenol yesterday around the clock. hx of old injury used to be on narcotic contract but states more than 4yrs ago. Does not want this to get as bad and have to start PT or narcotics again. no fever. no burning with urination. Related Data Home Medications ?Medication ?Instructions ?Recorded ?Confirmed albuterol sulfate 90 mcg/actuation 2 puff inhalation Q4H PRN wheezing 11/07/24 11/07/24 aerosol inhaler buspirone 10 mg tablet 10 mg PO BID 11/07/24 11/07/24 ergocalciferol (vitamin D2) 1,250 50,000 unit PO QWEEK 11/07/24 11/07/24 mcg (50,000 unit) capsule gabapentin 300 mg capsule 300 mg PO QDAY 11/07/24 11/07/24 trazodone 50 mg tablet 50 mg PO HS 11/07/24 11/07/24 Previous Rx's ?Medication ?Instructions ?Recorded baclofen 10 mg tablet 10 mg PO BID #20 tabs 12/10/24 hydrocodone 5 mg-acetaminophen 325 1 tab PO BID PRN pain 7 days #14 12/10/24 mg tablet tabs prednisone 20 mg tablet 60 mg PO QDAY 5 days #15 tabs 12/10/24 Allergies Allergy/AdvReac Type Severity Reaction Status Date / Time carisoprodol Allergy Mild Migraine Verified 11/09/24 19:18 Review of Systems Review of Systems Systems Reviewed: All systems reviewed, normal except as documented Eyes Eyes: Denies blurry vision Musculoskeletal Musculoskeletal: Reports as per HPI ED Exam General Limitations: Present no limitations General appearance: Present alert and in no apparent distress Eye Eye exam: Present normal appearance, PERRL and EOMI Neck Neck exam: Present normal inspection, full ROM and trachea midline Respiratory Respiratory exam: Present normal lung sounds bilaterally Cardiovascular Cardiovascular exam: Present regular rate, normal rhythm and normal heart sounds Extremities Exam Extremities exam: Present normal inspection and full ROM Back Exam Back exam: Present normal inspection, full ROM, paraspinal tenderness and sciatic notch tenderness (R) Psychiatric Psychiatric exam: Present normal affect and normal mood Skin Skin exam: Present warm, dry, intact and normal color Course Quality Measures none Orders Category Date Time Status Dexamethasone Inj [Decadron Inj] Med 12/10/24 07:05 Discontinued 10 mg PO X1 ONE HYDROcodone*/APAP 5/325 [[place] 5/325] Med 12/10/24 07:05 Discontinued 1 tab PO X1 ONE Ketorolac Inj [Toradol Inj] Med 12/10/24 07:05 Discontinued 30 mg IM X1 ONE Vital Signs Vital signs: Vital Signs Temperature 98.3 F 12/10/24 06:54 Pulse Rate 81 12/10/24 06:54 Respiratory Rate 18 12/10/24 06:54 Blood Pressure 145/87 H 12/10/24 06:54 Pulse Oximetry (%) 98 12/10/24 06:54 Oxygen Delivery Method Room Air 12/10/24 06:54 Discharge Plan Plan Patient Disposition: HOME (Self Care) Discharge Disposition comment: fu in 2-3days Prescriptions/Referrals Prescriptions/Med Rec: New hydrocodone-acetaminophen 5-325 mg tablet 1 tab PO BID MDD 2 PRN (Reason: pain) 7 Days Qty: 14 0RF baclofen 10 mg tablet 10 mg PO BID Qty: 20 0RF prednisone 20 mg tablet 60 mg PO QDAY 5 Days Qty: 15 0RF Taper: Prednisone Taper 20 mg DAILY for 2 Days and 0 Hour 10 mg DAILY for 2 Days and 0 Hour 5 mg DAILY for 7 Days and 0 Hour No Action buspirone 10 mg tablet 10 mg PO BID Patient Comments: TAKE 1 TABLET BY MOUTH TWICE DAILY trazodone 50 mg tablet 50 mg PO HS Patient Comments: TAKE 1 TABLET BY MOUTH DAILY AT BEDTIME NEEDED ergocalciferol (vitamin D2) 1,250 mcg (50,000 unit) capsule 50,000 unit PO QWEEK Patient Comments: TAKE 1 CAPSULE BY MOUTH EVERY WEEK FOR 12 WEEKS albuterol sulfate 90 mcg/actuation HFA aerosol inhaler 2 puff INHALATION Q4H PRN (Reason: wheezing) Patient Comments: INHALE 2 PUFFS BY MOUTH EVERY 4 HOURS NEEDED gabapentin 300 mg capsule 300 mg PO QDAY Problem List Clinical Impression: Back pain due to injury, Acute right-sided back pain with sciatica Patient/Caregiver Discharge Instructions Education Materials: Back Exercises: Back Press, Back Exercises: Lower Back Stretch Print Language: Puerto Rican Stand Alone Forms: Adela Award Info., Work/School Release, Patient Portal Info Letter PA/WEDGER [employer] GLUER Supervising Physician PA/[employer]ER Supervising Physician: Dr. Fraga [facility] Clinical Information Provided by patient Medical Records Reviewed [facility] Meds/Rx Considered, not Ordered Describe details: all meds considered were given Labs/Rad/Tests considered, not Ordered Describe details: none indicaated due to [facility] Chronic Illness/Social Conditions Add or document further as needed: hx of back injury and sciatica many years ago Imaging Provider imaging interpretation(s): no imaging Medication Administration(s) Medication Administration History Discontinued Medications Hydrocodone Bitart/Acetaminophen (Hydrocodone/Apap 5/325 Tablet) 1 tab PO X1 ONE Stop: 12/10/24 07:06 Last Admin: 12/10/24 07:22 Dose: 1 tab Documented By: MARK Dexamethasone Sodium Phosphate (Dexamethasone Sod Phos Inj 10 Mg/Ml Vial) 10 mg PO X1 ONE Stop: 12/10/24 07:06 Last Admin: 12/10/24 07:22 Dose: 10 mg Documented By: MARK Ketorolac Tromethamine (Ketorolac Inj 60 Mg/2 Ml Vial) 30 mg IM X1 ONE Stop: 12/10/24 07:06 Last Admin: 12/10/24 07:23 Dose: 30 mg Documented By: MARK see above Diagnosis Differential dx and/or dx ruled out: sciatica, muscle strain, djd Most likely dx, and/or detailed dx discussion: acute on chronic back injury
[2024-12-10] MEDS: DEXAMETHASONE SOD PHOS INJ 10 MG/ML VIAL PO (07:22)
[2024-12-10] MEDS: HYDROcodone/APAP 5/325 TABLET 1 TAB PO (07:22)
[2024-12-10] MEDS: KETOROLAC INJ 60 MG/2 ML VIAL 30 MG IM (07:23)
== END 2024-12-10 07:40 | disposition home or self-care (01) ==
LOC: SERX 07:33
PROVIDERS: Emergency Provider Family Medicine; PCP Obstetrics & Gynecology
DX: S39.92XA Unspecified injury of lower back, initial encounter (principal); X50.9XXA Other and unspecified overexertion or strenuous movements or postures, initial encounter; Y93.89 Activity, other specified; Y92.511 Restaurant or cafe as the place of occurrence of the external cause
CPT/HCPCS: 96372; 99283; J1100; J1885; A9270